=== PATIENT | female | born 1970 | race Caucasian/White ===

== ENCOUNTER 2017-07-05 08:07 | Day surgery (SDC) | payer MEDICARE, MEDICAID ==
[~2017-07-05 08:07] MED LIST: Buffered Lidocaine 0.9% SYRIN* 5 ML/SYR SYRINGE INTRADERM ONE
[2017-07-05] MEDS ORDERED: Ciprofloxacin 0.3% OPTH.SOL* 2.5 ML BTL ONE (08:52)
[2017-07-05] MEDS ORDERED: KETAMINE HCL* 50 MG/ML 10 ML VIAL ONE (09:03)
[2017-07-05] MEDS ORDERED: Propofol* 10 MG/ML 20 ML BTL IV PUSH ONE (09:13)
[2017-07-05] MEDS ORDERED: Midazolam* 1 MG/ML 5 ML VIAL (5 MG) ONE (09:13)
[2017-07-05] MEDS ORDERED: Ondansetron INJ* 2 MG/ML VIAL IV PRN (09:38)
[2017-07-05] MEDS ORDERED: fentaNYL* 50 MCG/ML 2 ML VIAL (100 MCG VIAL) IV PRN (09:38)
[2017-07-05 10:13] VITALS: BP 129/81
--- NOTE | 2017-07-05 23:58 | OP ---
DATE OF OPERATION: 07/05/17 - [facility] DATE OF : 72 SURGEON: Aries Nagel MD ANESTHESIOLOGIST: Freedom Conley MD ANESTHESIA: General anesthesia PRE-OP DIAGNOSIS: Bilateral cerumen impaction. POST-OP DIAGNOSIS: Bilateral cerumen impaction. OPERATIVE PROCEDURE: Bilateral cerumen removal. COMPLICATIONS: None. DISPOSITION: Good. SPECIMEN: None. BLOOD LOSS: None. DESCRIPTION OF PROCEDURE: The patient was taken to the operating room table and maintained with laryngeal mask airway anesthesia. The head was turned to the right. Ear speculum was placed in left ear canal and curette was used disimpact the ear, some mild inflammation. Tympanic membrane was intact. Middle ear space was clear. Ofloxacin drops were placed. Head was turned to the left. Ear speculum placed in right ear canal. Curette was used to disimpact the ear canal and tympanic membrane was clear with a clear middle ear space. The patient tolerated the procedure well. There were no complications, transferred to the recovery room in stable condition. [id number]/[facility] #: [id number] MTDD
== END 2017-07-05 10:08 | disposition home or self-care (01) ==
LOC: OR 08:07
PROVIDERS: ATTEND Otolaryngology
DX: H61.23 Impacted cerumen, bilateral (principal); Z88.0 Allergy status to penicillin
CPT/HCPCS: A9270-GY; J2250; J2704

== ENCOUNTER 2017-07-13 11:30 | Emergency (ER) | payer MEDICARE, MEDICAID ==
--- NOTE | 2017-07-13 12:06 | UC ---
Skin Complaint HPI - HPI Summary HPI Summary: 47 YEAR OLD FEMALE PRESENTS WITH RASH ON RIGHT HAND/THUMB SECONDARY TO SUCKING ON IT. - History of Current Complaint Time Seen by Provider: 07/13/17 12:05 Stated Complaint: RIGHT HAND SKIN Hx Obtained From: Patient Hx Last Menstrual Period: n/a Onset/Duration: Gradual Onset Skin Exposure Onset/Duration: Minutes Ago Timing: Constant Onset Severity: Moderate Current Severity: Moderate Location: Discrete Aggravating Factor(s): Nothing Alleviating Factor(s): Nothing - Allergy/Home Medications Allergies/Adverse Reactions: Allergies Allergy/AdvReac Type Severity Reaction Status Date / Time Penicillins Allergy Severe NEVER HAD Verified 07/13/17 12:04 PRECAUTION ONLY PER MOTHER GLUTEN Allergy Severe Diarrhea Uncoded 07/13/17 12:04 Review of Systems Constitutional: Negative Skin: Rash Eyes: Negative ENT: Negative Respiratory: Negative Cardiovascular: Negative Gastrointestinal: Negative Genitourinary: Negative Motor: Negative Neurovascular: Negative Musculoskeletal: Negative Neurological: Negative Psychological: Negative All Other Systems Reviewed And Are Negative: Yes PMH/Surg Hx/FS Hx/Imm Hx Previously Healthy: Yes - Surgical History Surgical History: Yes Surgery Procedure, Year, and Place: FEEDING TUBE [facility] MANY YEARS AGO. EAR SURGERY 2006 [facility]. T/A A CHILD [facility]. ceremen removal 2006, 2009, 2013. left eye cataract surgery with IOL - Social History Alcohol Use: None Substance Use Type: None Smoking Status (MU): Never Smoked Tobacco - Immunization History Most Recent Tetanus Shot: UTD Physical Exam Triage Information Reviewed: Yes Vital Signs Reviewed: Yes Eye Exam: Normal ENT Exam: Normal Dental Exam: Normal Neck exam: Normal Neck: Positive: 1 Respiratory Exam: Normal Cardiovascular Exam: Normal Abdominal Exam: Normal Musculoskeletal Exam: Normal Neurological Exam: Normal Psychological Exam: Normal Skin: Positive: rashes - RIGHT THUMB/HAND Course/Dx - Diagnoses Provider Diagnoses: RIGHT THUMB RASH/SKIN EXCORIATION Discharge - Discharge Plan Condition: Stable Disposition: HOME Prescriptions: Erythromycin Ethylsuc SUSP* [Ees*] 400 mg PO QID #400 ml Methylprednisolone [Medrol Dosepak 4 MG*] 4 mg PO .SEE JENNIFER INSTRUCTION #21 tab Patient Education Materials: Contact Dermatitis (ED) Referrals: Faraz Gutierrez MD [Primary Care Provider] -
== END 2017-07-13 12:30 | disposition home or self-care (01) ==
LOC: UCEAST 11:30
DX: R21 Rash and other nonspecific skin eruption (principal); Z88.0 Allergy status to penicillin
CPT/HCPCS: 99212; G0463

== ENCOUNTER 2017-11-21 12:30 | Emergency (ER) | payer MEDICARE, MEDICAID, OTHER ==
[2017-11-21 13:10] VITALS: BP 91/56
--- NOTE | 2017-11-21 14:07 | UC ---
Respiratory Complaint HPI - HPI Summary HPI Summary: fever x 1 day 103 fever this morning , has been weak and sleepy runny nose, no cough - History of Current Complaint Chief Complaint: UCGeneralIllness Stated Complaint: FEVER Time Seen by Provider: 11/21/17 13:16 Hx Obtained From: Family/Telecommunicator Hx From Patient Unobtainable Due To: Other - profound MR , non-verbal Hx Last Menstrual Period: n/a Onset/Duration: Gradual Onset, Lasting Days - 1, Still Present Timing: Constant Severity Initially: Moderate Severity Currently: Moderate Pain Intensity: 0 Aggravating Factors: Nothing Alleviating Factors: Nothing Associated Signs And Symptoms: Positive: Fever, URI, Nasal Congestion - Allergies/Home Medications Allergies/Adverse Reactions: Allergies Allergy/AdvReac Type Severity Reaction Status Date / Time Penicillins Allergy Unknown Verified 11/21/17 12:58 Reaction Details GLUTEN Allergy Severe Diarrhea Uncoded 07/13/17 12:04 PMH/Surg Hx/FS Hx/Imm Hx - Additional Past Medical History Additional PMH: [facility] M[facility] YE[facility] [place] [facility] [place] [facility] [place], 2009, 2013 left eye cataract surgery with IOL Previously Healthy: No - Surgical History Surgical History: Yes Surgery Procedure, Year, and Place: FE[facility] MANY YEARS AGO. [place] [facility] [place] [facility] [place]en [place] 2006, 2009, 2013. left eye cataract surgery with IOL - Family History Known Family History: Positive: Unknown - pt is non-verbal profound MR - Social History Alcohol Use: None Substance Use Type: None Smoking Status (MU): Never Smoked Tobacco - Immunization History Most Recent Tetanus Shot: UTD Review of Systems Constitutional: Fever, Fatigue Is Patient Immunocompromised?: No All Other Systems Reviewed And Are Negative: Yes Physical Exam Triage Information Reviewed: Yes Completion Of Physical Exam Limited Due To: Other - non-verbal , Appearance: Ill-Appearing, Thin Vital Signs: Initial Vital Signs Temp 101.1 F 11/21/17 13:03 Pulse 95 11/21/17 13:03 Resp 20 11/21/17 13:03 BP 91/56 11/21/17 13:03 Pulse Ox 93 11/21/17 13:03 Vital Signs Reviewed: Yes Eyes: Positive: Conjunctiva Clear ENT: Positive: Normal ENT inspection, Nasal drainage Neck: Positive: Supple, Nontender, No Lymphadenopathy Respiratory: Positive: Chest non-tender, Lungs clear, Normal breath sounds Cardiovascular: Positive: RRR, No Murmur, Pulses Normal UC Diagnostic Evaluation - Laboratory O2 Sat by Pulse Oximetry: 93 Respiratory Course/Dx - Differential Dx/Diagnosis Provider Diagnoses: influenza Discharge - Discharge Plan Condition: Good Disposition: HOME Prescriptions: Oseltamivir CAP* [Tamiflu CAP*] 75 mg PEG TUBE BID #10 cap Patient Education Materials: Influenza (ED) Referrals: Faraz Gutierrez MD [Primary Care Provider] - 3 Days Additional Instructions: please go to ED if not better in 2 days sooner if getting worse
== END 2017-11-21 14:06 | disposition home or self-care (01) ==
LOC: UCCORT 12:30
DX: J11.1 Influenza due to unidentified influenza virus with other respiratory manifestations (principal)
CPT/HCPCS: 87502; 99212; G0463

== ENCOUNTER → 2019-03-18 10:01 | Day surgery (SDC) | payer MEDICARE, OTHER, MEDICAID ==
[~2019-03-18 10:01] MED LIST changes: -Buffered Lidocaine 0.9% SYRIN* 5 ML/SYR SYRINGE INTRADERM ONE; +DiMENhydriNATE IV* 50 MG/ML VIAL IV PUSH PRN; +KETAMINE HCL* 50 MG/ML 10 ML VIAL ONE; +Lactated Ringers 1000 ML Bag* 1,000 ML IV SCH; +Naloxone* 0.4 MG/ML 1 ML VIAL IV PRN; +Ondansetron INJ* 2 MG/ML VIAL IV PRN; +Phenylephrine 0.5% NASAL* BTL ONE
--- NOTE | 2019-03-18 13:04 | OP ---
DATE OF OPERATION: 03/18/19 - [facility] DATE OF : 72 SURGEON: Sarmad Nagel MD PRE-OP DIAGNOSIS: Bilateral cerumen impactions. POST-OP DIAGNOSIS: Bilateral cerumen impactions. OPERATIVE PROCEDURE: Bilateral cerumen disimpactions under gas mask anesthesia. COMPLICATIONS: None. SPECIMENS: None. ESTIMATED BLOOD LOSS: None. DESCRIPTION OF PROCEDURE: The patient was taken to the operating room, placed in the supine position on the operating table, maintained with gas mask anesthesia. Head was turned to the right, ear speculum was placed in the left ear canal, using the suction and curette the cerumen was disimpacted. There was slight tear on the posterior bony canal. Some Alex-Synephrine drops were placed. These were suctioned clear. Tympanic membrane is intact with normal landmarks. Head was turned to the left. Ear speculum was placed in the right ear canal. The cerumen impaction was cleaned with suction and curette. Again, with the removal of tear in the posterior bony canal, this was treated with some Alex-Synephrine drops and suctioned. The tympanic membrane is intact with normal landmarks. The patient tolerated the procedure well. No complications. [id number]/[facility] #: [id number] BINDU
[2019-03-18 13:37] VITALS: BP 93/55
== END | disposition home or self-care (01) ==
LOC: OR 10:01
PROVIDERS: ATTEND Otolaryngology
DX: H61.23 Impacted cerumen, bilateral (principal); Q90.9 Down syndrome, unspecified; F79 Unspecified intellectual disabilities; H54.40 Blindness, one eye, unspecified eye; I34.1 Nonrheumatic mitral (valve) prolapse; Z93.1 Gastrostomy status; R13.10 Dysphagia, unspecified; F41.9 Anxiety disorder, unspecified
CPT/HCPCS: A9270-GY